=== PATIENT | male | born 1970 | race Caucasian/White ===

== ENCOUNTER → 2022-10-22 | Outpatient (CLI) | payer BC ==
--- NOTE | 2022-10-22 13:09 | US ---
EXAMINATION TYPE: US thyroid st tissue head/neck DATE OF EXAM: 10/22/2022 COMPARISON: NONE CLINICAL HISTORY: E04.1 NONTOXIC SINGLE THYROID NODULE. Thyroid nodule GLAND SIZE: Right Lobe: 5.5 x 2.0 x 1.6 cm Overall Parenchyma: heterogenous Left Lobe: 5.5 x 2.0 x 1.7 cm Overall Parenchyma: heterogeneous Isthmus Thickness: 0.28 cm NODULES RIGHT: # of nodules measured on right: 0 LEFT: # of nodules measured on left: 2 1. 0.9 X 0.8 x 0.7 cm, lower lateral, solid or almost completely solid, hyperechoic nodule, which i s wider than tall, with smooth margins. Prior size: No prior 2. 0.5 X 0.4 x 0.4 cm, lower mid, mixed cystic and solid, hypoechoic nodule, which is as wide as i t is tall, with smooth margins, without echogenic foci. Prior size: No prior ISTHMUS: # of nodules measured in the isthmus: 0 Bilateral neck scanned, no evidence of lymphadenopathy. IMPRESSION: 1. Nonspecific glandular heterogeneity and subcentimeter nodularity.
== END | disposition home or self-care (01) ==
LOC: RADUSWWP 10:53
PROVIDERS: ATTEND Family Medicine
DX: E04.1 Nontoxic single thyroid nodule (principal)
CPT/HCPCS: 76536